=== PATIENT | male | born 1990 | race Caucasian/White ===

== ENCOUNTER 2022-03-16 12:33 | Emergency (ER) | payer SELFPAY ==
[2022-03-16 14:15] VITALS: BP 141/85; PULSE 86; RESP 20; TEMP 37.1; O2SAT 100; BMI 36.0
--- NOTE | 2022-03-16 14:29 | EXP.UTC ---
Discharge Plan Disposition Patient Disposition: Home, Self-Care Condition: Good Prescriptions Prescriptions: New ondansetron 4 mg tablet,disintegrating 4 mg PO Q8H PRN (Reason: nausea and vomiting) Qty: 10 0RF Referrals Follow up/Referrals: Gil Cutler [Primary Care Provider] - See instructions Activity Restrictions/Add. Instructions Additional Instructions/Restrictions: Drink extra fluids with and between meals. If you have difficulty drinking, try very small amounts of water or suck on ice chips. ? Avoid fruit juices, as these do not replace minerals and can actually increase diarrhea. ? Children and adults can use sports drinks to replenish electrolytes. Younger children and infants should use products formulated for children, like oral rehydration solutions. ? Eat food in small amounts and let your stomach recover. ? Get lots of rest. You may feel tired or weak. ? No greasy or fried foods for the next 24-48 hours BRAT diet Bananas Rice Apples and Hustler ? Make sure to drink plenty of liquids ? Return if needed ? Straight to ER if any life threatening symptoms ? Zofran as prescribed ? Follow up with family doctor in the next 48-72 hours if no improvement or any worsening of symptoms Clinical Impressions Clinical Impression: Flu-like symptoms Stand Alone Forms Stand Alone Forms: Work/School Release Instructions Patient Instructions: DI for Fever (Symptom) -- Adult, DI for Nausea -- Adult, Nausea and Vomiting-Adult Discharge ED Provider: Susan Laughlin [facility] General Stated complaint: congestion, vomiting, cough Mode of Arrival: Ambulatory Source of Information: Patient Limitations: No Limitations Time Seen by Provider: 03/16/22 14:29 Description of Symptoms (Recalled from Triage Doc. by RN): PATIENT C/O NAUSEA, VOMITING AND CONGESTION SINCE YESTERDAY HEENT Symptoms (Recalled from RN notes): Yes Resp Symptoms (Recalled from RN notes): No Skin Symptoms (Recalled from RN notes): No MS Symptoms (Recalled from RN notes): No Functional Status (Recalled from RN notes): WNL History of Present Illness Provider Complaint: Patient states that he started yesterday with nasal congestion and N/V States that he has been having nasal congestion and then last night started with the vomiting States that he has not vomited any today but has still been having some nausea Related Data Previous Rx's Medication Instructions Recorded ondansetron 4 mg disintegrating 4 mg PO Q8H PRN nausea and 03/16/22 tablet vomiting #10 tabs Allergies Allergy/AdvReac Type Severity Reaction Status Date / Time No Known Allergies Allergy Verified 03/16/22 14:26 Worker's Comp Is this a Worker's Comp case?: No PFSH [facility] Disclaimer: The information contained in this section may have been updated after the patient was seen, as this information can be updated by other users. Medical History (Updated 03/16/22 @ 14:53 by Susan Laughlin APRN) No significant past medical history Social History (Updated 03/16/22 @ 14:26 by Leatha De La Torre RN) Smoking Status: Unknown if ever smoked alcohol intake: never current occupational status: other Travel in the last 8 weeks: None ROS Obtained: Yes All systems reviewed & no additional complaints except as documented and Yes Systems reviewed as appropriate & no additional complaints except as documented Constitutional Constitutional: Reports system reviewed and no additional complaints, except as documented, Reports as per HPI, Denies body ache, Denies chills and Denies fever(s) ENT Ears, Nose, Mouth, and Throat: Reports system reviewed and no additional complaints, except as documented, Reports as per HPI, Reports nasal congestion, Reports nasal discharge and Reports sore throat Cardiovascular Cardiovascular: Reports system reviewed and no additional complaints, except as documented and Reports as per H
[2022-03-16 14:50] LABS: UTC Strep Screen (Rapid) Negative (Negative)
[2022-03-16 15:05] VITALS: BP 141/85; PULSE 86; RESP 20; TEMP 37.1; O2SAT 100
== END 2022-03-16 15:18 | disposition home or self-care (01) ==
PROVIDERS: Emergency Provider Nurse Practitioner; PCP Pediatrics
DX: R05.9 Cough, unspecified (principal)
CPT/HCPCS: 87880; 99212; G0463

== ENCOUNTER 2023-10-16 11:03 | Emergency (ER) | payer BC, SELFPAY ==
[2023-10-16 11:30] VITALS: BP 121/86; PULSE 85; RESP 18; TEMP 36.6; O2SAT 97; BMI 34.9
--- NOTE | 2023-10-16 11:38 | ED_ITS ---
Discharge Plan Disposition Patient Disposition: Home, Self-Care Condition: Good Prescriptions Prescriptions: New vdlcqfxjuxvlscb-wkdwbzekb-HD [Bromfed DM] 2-30-10 mg/5 mL Syrup 5 ml PO Q6H PRN (Reason: Cough) Qty: 240 0RF azithromycin [Zithromax] 250 mg tablet 250 mg PO UD DOSE PK Qty: 6 0RF Rx Instructions: Take two (2) tablets today, then one (1) tablet days #2 thru #5 methylprednisolone 4 mg Tablets,Dose Pack 4 mg PO DIRECTED 6 Days Qty: 21 0RF Rx Instructions: Take 1 pack as directed for 6 days Referrals Follow up/Referrals: Rosetta Scott PA [Primary Care Provider] - See instructions Activity Restrictions/Add. Instructions Additional Instructions/Restrictions: Drink plenty of fluids. Take tylenol or ibuprofen for pain or fever. Take the medications as directed. Follow up with your regular doctor. GO TO THE ER FOR ANY WORSENING SYMPTOMS Clinical Impressions Clinical Impression: Sinusitis Stand Alone Forms Stand Alone Forms: Work/School Release Instructions Patient Instructions: Sinusitis, DI for Sinusitis Discharge ED Provider: Dat Fajardo [facility] General Stated complaint: congestion cough body ache Time Seen by Provider: 10/16/23 11:38 Related Data Previous Rx's Medication Instructions Recorded azithromycin 250 mg tablet 250 mg PO UD DOSE PK #6 tabs 10/16/23 (Zithromax) dwaieewsaypzogp-xelsxkngrmakkkx-KI 5 ml PO Q6H PRN Cough #240 mL 10/16/23 2 mg-30 mg-10 mg/5 mL oral syrup (Bromfed DM) methylprednisolone 4 mg tablets in 4 mg PO DIRECTED 6 days #21 tabs 10/16/23 a dose pack Allergies Allergy/AdvReac Type Severity Reaction Status Date / Time No Known Allergies Allergy Verified 03/16/22 14:26 [facility] Disclaimer: The information contained in this section may have been updated after the patient was seen, as this information can be updated by other users. Medical History (Updated 10/16/23 @ 12:00 by Dat Fajardo APRN) No significant past medical history Social History (Updated 03/16/22 @ 14:53 by Susan Laughlin APRN) Smoking Status: Unknown if ever smoked alcohol intake: never current occupational status: other Travel in the last 8 weeks: None ROS Obtained: Yes All systems reviewed & no additional complaints except as documented Constitutional Constitutional: Reports poor appetite Eyes Eyes: Reports system reviewed and no additional complaints, except as documented ENT Ears, Nose, Mouth, and Throat: Reports as per HPI Cardiovascular Cardiovascular: Reports system reviewed and no additional complaints, except as documented and Denies chest pain Respiratory Respiratory: Denies shortness of breath, Denies chest congestion, Reports cough, Denies stridor and Denies wheezing Gastrointestinal Gastrointestingal: Reports system reviewed and no additional complaints, except as documented; Denies abdominal pain, diarrhea or vomiting Musculoskeletal Musculoskeletal: Reports system reviewed and no additional complaints, except as documented and Denies arthralgias Integumentary/Breasts Skin/Breast: Reports system reviewed and no additional complaints, except as documented and Denies rash Neurologic Neurologic: Denies paresthesias Allergic/Immunologic Allergic/Immunologic: Denies wheezing Physical Exam General General appearance: alert and in no apparent distress Eye Eye exam: Present normal appearance, PERRL and EOMI ENT ENT exam: Present mucous membranes moist and normal external ear exam Expanded ENT Exam External ear exam: Present normal external inspection TM/Canal exam: Bilateral TM: erythema and bulging Nose exam: Absent sinus tenderness Nasal speculum exam: Bilateral: normal Mouth exam: Present normal external inspection; Absent drooling Teeth exam: Present normal inspection Throat exam: Present tonsillar erythema and tonsillomegaly Neck Neck exam: Present normal inspection, full ROM and trachea midline; Absent tenderness, lymphadenopathy or thyromegaly Chest Chest inspection: Present normal inspection and symmetric chest wall rise; Absent tenderness or rash Respiratory Respiratory exam: Present normal lung sounds bilaterally; Absent respiratory distress, wheezes, stridor or accessory muscle use Cardiovascular Cardiovascular exam: Present regular rate, normal rhythm and normal heart sounds Abdominal Exam Abdominal exam: Present soft; Absent distention, tenderness, guarding, rebound or rigidity Extremities Exam Extremities exam: Present normal inspection, full ROM and normal capillary refill; Absent tenderness or calf tenderness Back Exam Back exam: Present normal inspection and full ROM; Absent tenderness Neurological Exam Neurological exam: Present alert and oriented X3 Psychiatric Psychiatric exam: Present normal affect and normal mood Skin Skin exam: Present warm, dry, intact and normal color Lymphatic Lymphatic Findings: no adenopathy Medical Decision Making Medical Records Medical records reviewed: No I reviewed the patient's medical records. Wilfrid Inquiry Pt receiving controlled substance: No
[2023-10-16 11:57] LABS: UTC Strep Screen (Rapid) Negative (Negative)
[2023-10-16 12:00] VITALS: BP 121/86; PULSE 85; RESP 18; TEMP 36.6; O2SAT 97
== END 2023-10-16 12:04 | disposition home or self-care (01) ==
PROVIDERS: Emergency Provider Nurse Practitioner Family; PCP Student in an Organized Health Care Education/Training Program
DX: J01.90 Acute sinusitis, unspecified (principal); R05.9 Cough, unspecified
CPT/HCPCS: 87880; 99212; 99214; G0463

== ENCOUNTER 2025-02-10 08:34 | Emergency (ER) | payer SELFPAY ==
[2025-02-10] VITALS (7 sets, daily range): BP systolic 127–157; BP diastolic 74–99; PULSE 69–101; RESP 18; TEMP 36.7; O2SAT 97–100; BMI 35.7
--- OUTSIDE RECORDS SUMMARY | 2025-02-10 08:47 | XMS_ITS ---
Author Organization Unknown ENCOUNTERS Encounter Performer Location Date Diagnosis Diagnosis Status Pre Admit [facility] [address] [place] [address] [id number] Emergency [facility] [address] [place] [address] [id number] Emergency [facility] [address] [place] [address] [id number] MAUDE Pre Admit [place] [address], [facility] [id number] Emergency [facility] [address] [place] [address] [id number] MAUDE *Note: Encounters from your own facility or health system may be excluded. Allergies, Adverse Reactions, Alerts Allergen Type Severity Identification Date Medications Name Date Quantity Days Supplied GPI Number
--- NOTE | 2025-02-10 08:54 | CT_ITS ---
PROCEDURE INFORMATION: Exam: CT Temporal Bones With Contrast. Exam date and time: 02/10/2025 10:30 AM Age: 34 years old Clinical indication: Other: R aom with perf, pain w palpation of the mastoid TECHNIQUE: Imaging protocol: Computed tomography of the temporal bones with contrast. Radiation optimization: All CT scans at this facility use at least one of these dose optimization techniques: automated exposure control; mA and/or kV adjustment per patient size (includes targeted exams where dose is matched to clinical indication); or iterative reconstruction. Contrast material: ISOVUE; Contrast volume: 75 ml; Contrast route: INTRAVENOUS (IV); Other contrast: iv; COMPARISON: No relevant prior studies available. FINDINGS: Right inner ear: Normal. Right ossicles and middle ear: There is subtotal opacification of the right middle ear cavity. No bony destruction appreciated. Right external auditory canal: There is mucosal thickening noted of the cartilaginous right external auditory canal. Right facial nerve canal: Normal. Right jugular foramen: No jugular dehiscence. Right carotid canal: No aberrant carotid canal. Right mastoid air cells: Fluid opacified mastoid air cells on the right without evidence for bony destruction or drainable fluid collection. Left inner ear: Normal. Left ossicles and middle ear: Normal. The middle ear ossicles are intact. Left external auditory canal: Normal. Left facial nerve canal: Normal. Left jugular foramen: No jugular dehiscence. Left carotid canal: No aberrant carotid canal. Left mastoid air cells: Normal. No mastoid effusions. Paranasal sinuses: There is patchy mucosal thickening in opacity noted within the visualized paranasal sinuses, right worse than left. Pharynx: There is notable soft tissue fullness at the roof of the nasopharynx, probably adenoidal hypertrophy. Please correlate clinically, with direct visualization. Soft tissues: Unremarkable. IMPRESSION: Right otitis media with mastoid air cell involvement, mild otitis externa suspected. No evidence for coalescent mastoiditis. No drainable fluid collection. Pansinusitis. Adenoidal hypertrophy.
--- NOTE | 2025-02-10 08:56 | ED_ITS ---
Discharge Plan Disposition Patient Disposition: Home, Self-Care Condition: Good Prescriptions Prescriptions: New Cipro HC 0.2-1 % drops,suspension 3 drp otic (ear) BID Qty: 10 0RF amoxicillin 500 mg capsule 2,000 mg PO Q12H 7 Days Qty: 56 0RF No Action aqwutnzgmckraoh-zpprivwyj-CY [Bromfed DM] 2-30-10 mg/5 mL Syrup 5 ml PO Q6H PRN (Reason: Cough) Qty: 240 0RF azithromycin [Zithromax] 250 mg tablet 250 mg PO UD DOSE PK Qty: 6 0RF Rx Instructions: Take two (2) tablets today, then one (1) tablet days #2 thru #5 methylprednisolone 4 mg Tablets,Dose Pack 4 mg PO DIRECTED 6 Days Qty: 21 0RF Rx Instructions: Take 1 pack as directed for 6 days Referrals Follow up/Referrals: Provider,Referral, MD [Primary Care Provider, Medical] - See instructions Clinical Impressions Clinical Impression: Otitis media Print Language Print Language: Swiss Discharge ED Provider: Matt Griggs General Adult HPI General Chief complaint: Ear Stated complaint: R ear ache, congestion Time Seen by Provider: 02/10/25 08:53 Mode of Arrival: Ambulatory Source of Information: Patient Description of Symptoms (Recalled from ER Triage Doc. by RN): Reports right ear ache with drainage that started a couple of days ago. History of Present Illness HPI narrative: This patient is a 34-year-old male with minimal reported past medical history who presents to the emergency department with concern for sinus infection and ear infection. The patient reports that he has had sinus pressure and pain bilaterally for the last week, over the last 3 to 4 days he developed right- sided ear pain and drainage. He feels symptoms have not been improving with conservative management at home. He did try some of his daughters eardrops with no success. This morning he developed severe intermittent pain behind the right ear. On exam the patient is hemodynamically stable, afebrile, with tenderness with palpation of the right mastoid. Related Data Previous Rx's ?Medication ?Instructions ?Recorded azithromycin 250 mg tablet 250 mg PO UD DOSE PK #6 tab s 10/16/23 (Zithromax) qtywxpuultvewge-ytftkhoerjvsdka-TL 5 ml PO Q6H PRN Cou gh #240 mL 07/07/24 2 mg-30 mg-10 mg/5 mL oral syrup (Bromfed DM) methylprednisolone 4 mg tablets in 4 mg PO DIRECTED 6 days #21 tabs 10/16/23 a dose pack amoxicillin 500 mg capsule 2,000 mg (4 x 500 mg) PO Q1 2H 7 02/10/25 days #56 caps ciprofloxacin 0.2 %-hydrocortisone 3 drp otic (ear) BI D #10 mL 02/10/25 1 % ear drops,suspension (Cipro HC) Allergies Allergy/AdvReac Type Severity Reaction Status Date / Time No Known Allergies Allergy Verified 03/16/22 14:26 [facility] Disclaimer: The information contained in this section may have been updated after the patient was seen, as this information can be updated by other users. Medical History (Updated 02/10/25 @ 10:43 by Matt Griggs MD) No significant past medical history Social History (Updated 03/16/22 @ 14:53 by Susan Laughlin APRN) Smoking Status: Current every day smoker alcohol intake: never current occupational status: other Travel in the last 8 weeks?: None Have you lived/traveled outside [place] in past 30 days?: No Contact w/someone who lives/traveled outside US past 30 days?: No Exposure to someone with infectious disease in past 14 days?: No Do you have a fever (greater than 100.4 F or 38 C)?: No Have you tested positive for COVID-19?: No Exposed to someone with COVID-19 in past 14 days?: No Do you have a sore throat?: No Do you have a cough?: No Do you have any weakness?: No Do you have any diarrhea?: No Are you experiencing any unusual bleeding?: No Do you have any muscle aches/pain?: No Do you have any abdominal pain?: No Are you experiencing loss of taste or smell?: No ROS Obtained: Yes All systems reviewed & no additional complaints except as documented Physical Exam General General appearance: alert and in no apparent distress Head Head exam: atraumatic and normocephalic Eye Eye exam: Present normal appearance, PERRL and EOMI Expanded ENT Exam External ear exam: Present other (Purulent fluid behind the right tympanic membrane, small perforation visible with drainage, drainage visible within external ear canal, no obvious otitis externa, pain with palpation of the right mastoid) Neck Neck exam: Present normal inspection, full ROM and trachea midline Chest Chest inspection: Present normal inspection and symmetric chest wall rise; Absent tenderness Respiratory Respiratory exam: Absent respiratory distress Cardiovascular Cardiovascular exam: Present regular rate, normal rhythm and other (appears warm and well perfused) Abdominal Exam Abdominal exam: Absent distention or tenderness exam: Absent deferred Extremities Exam Extremities exam: Present normal inspection and full ROM Neurological Exam Neurological exam: Present alert and oriented X3 Psychiatric Psychiatric exam: Present normal affect Skin Skin exam: Present warm and dry Medical Decision Making Medical Records Medical records reviewed: Yes I reviewed the patient's medical records. Screening: Per USPSTF and CDC recommendations, given the prevalence of disease in our region, it is our hospital?s policy to screen for HIV and viral Hepatitis for all patients aged 18 and over and those with ongoing risk factors. Wilfrid Inquiry Pt receiving controlled substance: No Wilfrid was queried for this patient: No Vital Signs: 02/10/25 08:38 02/10/25 08:39 02/10/25 09:00 Temperature 98.1 F Temperature Source Oral Pulse Rate 91 H 69 Pulse Rate [Radial] 94 H Respiratory Rate 18 Blood Pressure 144/74 H 157/99 H Blood Pressure [Right Arm] 144/74 H Blood Pressure Mean [Right Arm] 97 Blood Pressure Source Blood Pressure Source [Right Arm] Automatic Cuff Blood Pressure Position Blood Pressure Position [Right Arm] Sitting 02 Sat by Pulse Oximetry 99 98 97 Oxygen Delivery Method Room Air Room Air Room Air 02/10/25 09:35 02/10/25 09:45 02/10/25 10:33 Temperature Temperature Source Pulse Rate 97 H 86 98 H Pulse Rate [Radial] Respiratory Rate Blood Pressure 127/92 H Blood Pressure [Right Arm] Blood Pressure Mean [Right Arm] Blood Pressure Source Blood Pressure Source [Right Arm] Blood Pressure Position Blood Pressure Position [Right Arm] 02 Sat by Pulse Oximetry 99 100 97 Oxygen Delivery Method Room Air Room Air Room Air 02/10/25 10:50 Temperature 98.0 F Temperature Source Oral Pulse Rate 101 H Pulse Rate [Radial] Respiratory Rate 18 Blood Pressure 127/92 H Blood Pressure [Right Arm] Blood Pressure Mean [Right Arm] Blood Pressure Source Automatic Cuff Blood Pressure Source [Right Arm] Blood Pressure Position Sitting Blood Pressure Position [Right Arm] 02 Sat by Pulse Oximetry Oxygen Delivery Method Room Air Lab Data Lab results reviewed: Yes I reviewed the patient's lab results. Lab Results 02/10/25 09:00: WBC 8.1, RBC 4.38 L, Hgb 13.4 L, Hct 39.0 L, MCV 89.0, MCH 30.6, MCHC 34.4, RDW 11.7, Plt Count 252, MPV 9.6, Neut % (Auto) 64.3, Lymph % (Auto) 25.5, [facility] % (Auto) 5.8, Eos % (Auto) 4.0, Baso % (Auto) 0.2, Neut # (Auto) 5.2, Lymph # (Auto) 2.1, [facility] # (Auto) 0.5, Eos # (Auto) 0.3, Baso # (Auto) 0.0, Sodium 137, Potassium 3.7, Chloride 102, Carbon Dioxide 27, Anion Gap 11.7, BUN 16, Creatinine 0.80, Estimated Creat Clear 196, Estimated GFR 111, Est GFR ( Amer) 134, Glucose 120 H, Calcium 8.5, Total Bilirubin 0.8, AST 31, ALT 30, Alkaline Phosphatase 81, C-Reactive Protein 31.5 H, Total Protein 7.7, Albumin 3.9, Globulin 3.8 H, Albumin/Globulin Ratio 1.0 L, HCV Ab KALPANA w/Rflx PCR Qn Negative, HIV Ag/Ab Combo Qual Negative 02/10/25 09:00 02/10/25 09:00 Orders (Tests/Meds): ED MEDICATIONS Discontinued Medications Generic Name Dose Route Start Last Admin Trade Name Freq PRN Reason Stop Dose Admin Iopamidol 75 ml 02/10/25 09:36 02/10/25 09:37 Iopamidol-370 (76%);100ml Bottle IV 02/10/25 09:37 75 ml ONCE ONE Administration Sodium Chloride 10 ml 02/10/25 09:36 02/10/25 09:37 Sodium Chloride 0.9% 10ml Syr (Rad Only) IV 02/10/25 09:37 10 ml ONCE ONE Administration ORDERS Category Date Time Status CT Temporal bone With Stat Cat Scan 02/10/25 08:54 Completed CBC w/Auto Diff [Complete Blood Count Auto Diff] Stat Lab 02/10/25 09:00 Completed CMP [Comprehensive Metabolic Panel] Stat Lab 02/10/25 09:00 Completed CRP [C-Reactive Protein] Stat Lab 02/10/25 09:00 Completed HIV Combo Stat Lab 02/10/25 09:00 Completed Hepatitis C Ab Qual. W/ RFX Stat Lab 02/10/25 09:00 Completed Medical Decision Narrative: MDM In summary, this 34-year-old male presents to the emergency department today with right-sided ear pain. Initial evaluation the patient comfortable, hemodynamically stable. Differential diagnosis includes but is not limited to acute otitis media, otitis externa, mastoiditis, referred pain, abscess. Based on these concerns, I ordered inflammatory markers, contrasted CT scan of the temporal bone. Labs personally reviewed and interpreted demonstrate no significant leukocytosis, no significant anemia, elevation in CRP. CT imaging personally interpreted by me demonstrate acute otitis media with no infiltration into the temporal bone or mastoid, no concern for mastoiditis. Based on imaging results I think it is most likely the patient is suffering from acute otitis media with perforation. I made the decision to treat him with high-dose amoxicillin and ciprofloxacin eardrops. The patient was comfortable with this plan. I provided him with careful return precautions. Critical Care Critical Care Time Critical Care Time: No
[2025-02-10 09:13] LABS: Hematocrit 39.0 % (42.0-52.0); Hemoglobin 13.4 g/dL (14.1-18.0); Immature Granulocytes % 0.2 %; Mean Corpuscular HGB Conc 34.4 g/dL (31.8-35.4); Mean Corpuscular Hemoglobin 30.6 pg (27.0-31.2); Mean Corpuscular Volume 89.0 fl (80-94); Nucleated Red Blood Cells % 0 %; Platelet Count 252 K/mm3 (142-424); Red Blood Count 4.38 M/mm3 (4.60-6.20); Red Cell Distribution Width-SD 37.4 fL; White Blood Count 8.1 K/mm3 (4.8-10.8)
[2025-02-10 09:27] LABS: Alanine Aminotransferase 30 U/L (12-78); Albumin Level 3.9 g/dl (3.5-5.0); Albumin/Globulin Ratio 1.0 (1.1-1.8); Alkaline Phosphatase 81 U/L (38-126); Anion Gap 11.7 mEq/L (5-15); Aspartate Amino Transferase 31 U/L (17-59); Bilirubin,Total 0.8 mg/dl (0.2-1.3); Blood Urea Nitrogen 16 mg/dl (9-20); Calcium 8.5 mg/dl (8.4-10.2); Carbon Dioxide 27 mmol/L (22.0-30.0); Chloride 102 mmol/L (98-107); Creatinine Clearance Estimated 196 mL/min (50-200); Creatinine,Serum 0.80 mg/dl (0.66-1.25); Estimated Glomerular Filt Rate 111 ml/min (>60); GFR (African American) 134 ML/MIN (>60); Globulin 3.8 g/dL (1.3-3.2); Glucose 120 mg/dl (74-100); Potassium 3.7 mmoL/L (3.5-5.1); Sodium 137 mmol/L (136-145); Total Protein,Serum 7.7 g/dl (6.3-8.2)
[2025-02-10 09:33] LABS: C-Reactive Protein 31.5 mg/L (0-4)
[2025-02-10] MEDS: SODIUM CHLORIDE 0.9% 10ML SYR (RAD ONLY) 10 ML IV (09:37)
[2025-02-10] MEDS: IOPAMIDOL-370 (76%);100ML BOTTLE 75 ML IV (09:37)
[2025-02-10 11:33] LABS: Hepatitis C Ab Qual. W/ RFX NEGATIVE (Negative)
== END 2025-02-10 10:52 | disposition home or self-care (01) ==
PROVIDERS: Emergency Provider Student in an Organized Health Care Education/Training Program
DX: H66.011 Acute suppurative otitis media with spontaneous rupture of ear drum, right ear (principal); R79.82 Elevated C-reactive protein (CRP)
CPT/HCPCS: 70481; 80053; 85025; 86140; 86803; 87389; 99284; Q9967